=== PATIENT | female | born 1990 | race Hispanic/Latino ===

== ENCOUNTER 2018-08-16 14:58 | Emergency (ER) | payer SELFPAY ==
[~2018-08-16] VITALS: Ht 162.6 cm; Wt 82.8 kg
[~2018-08-16 14:58] MED LIST: AMOXICILLIN500 MG PO; DENIES CURRENT MEDS; FAMVIR500 MG OR; IBUPROFEN600 MG OR; LORTAB 7.57.5 MG PO; NO MEDS; PRENATABS PO
[2018-08-16 18:58] VITALS: BP 140/87
== END 2018-08-16 18:58 | disposition home or self-care (01) | DRG 563 ==
LOC: ED 14:58
DX: S93.402A Sprain of unspecified ligament of left ankle, initial encounter (principal); X50.1XXA Overexertion from prolonged static or awkward postures, initial encounter; Y93.A9 Activity, other involving cardiorespiratory exercise; Y92.009 Unspecified place in unspecified non-institutional (private) residence as the place of occurrence of the external cause